=== PATIENT | male | born 1935 | race Caucasian/White ===

== ENCOUNTER 2017-12-06 10:50 | Emergency (ER) | payer MEDICARE, BC ==
--- NOTE | 2017-12-06 11:03 | EDM.PDOC ---
ED HPI GENERAL MEDICAL PROBLEM - General Chief Complaint: Chest Pain Stated Complaint: HEADACHE/CHEST PAIN Time Seen by Provider: 12/06/17 11:03 Source of Information: Reports: Patient History Limitations: Reports: No Limitations - History of Present Illness INITIAL COMMENTS - FREE TEXT/NARRATIVE: Tacho is a pleasant 82yo male presents ambulatory to ED accompanied by his son for sensation of left sided chest pain starting a few hours ago and intermittent dizziness, off and on this past week. He was seen at [facility] early in the week for dizziness and was told he has an irregular heart rhythm and to f/up with PCP. He then followed up with PCP, Dr. San. Dizziness has persisted, is very intermittent, not associated with activity. He does walk 2 miles every morning for years. He walked this morning with very minimal left sided chest pain, no worsening of dizziness. He reports pain has been persistent since sometime this morning. He is not nauseous, no heartburn pain, no diaphoresis, neck, arm or back pain, no headache or vision change. Pain is not positional, not affected by eating or activity. He has hx of hyperlipidemia for which he takes statin medication daily for 20+ years. Otherwise he takes baby ASA daily, no other medications. He has not had chest pain before, again dizziness has been present for around a week. No abd pain, swelling in the abdomen or lower extremities, no leg pain with walking/activity. Onset: Today Duration: Hour(s): Location: Reports: Chest Quality: Reports: Ache Improves with: Reports: None Worsens with: Reports: None Associated Symptoms: Reports: Chest Pain. 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 Denies: Shortness of Breath, Wheezing, Pleuritic Chest Pain, Cough Cardiovascular: Reports: Chest Pain, Lightheadedness (intermittent and accompanied with dizziness x 5-7 days). Denies: Blood Pressure Problem, Claudication, Dyspnea on Exertion, Edema, Orthopnea, Palpitations, PND, Syncope Endocrine: Reports: No Symptoms GI/Abdominal: Reports: No Symptoms : Reports: No Symptoms Musculoskeletal: Reports: No Symptoms Skin: Reports: No Symptoms Neurological: Reports: Dizziness. Denies: Confusion, Headache, Numbness, Paresthesia, Tingling, Tremors, Trouble Speaking, Difficulty Walking, Weakness, Change in Speech, Gait Disturbance Psychiatric: Reports: No Symptoms, Other (reports that he may be feeling a little anxious since being told he has an abnormal heart rhythm) Hematologic/Lymphatic: Reports: No Symptoms ED EXAM, GENERAL - Physical Exam Exam: See Below Exam Limited By: No Limitations General Appearance: Alert, WD/WN, No Apparent Distress Eye Exam: Bilateral Eye: EOMI, PERRL Ears: Normal External Exam, Hearing Grossly Normal Nose: Normal Inspection Throat/Mouth: Normal Inspection, Normal Lips, Normal Voice, No Airway Compromise Head: Atraumatic, Normocephalic Neck: Normal Inspection, Supple, Full Range of Motion Respiratory/Chest: No Respiratory Distress, Lungs Clear, Normal Breath Sounds Cardiovascular: Normal Peripheral Pulses, No Edema, Irregularly Irregular Peripheral Pulses: 2+: Radial (L), Radial (R), Dorsalis Pedis (L), Dorsalis Pedis (R) GI/Abdominal: Normal Bowel Sounds, Soft, Non-Tender (Male) Exam: Deferred Rectal (Males) Exam: Deferred Extremities: Normal Inspection, No Pedal Edema, Normal Capillary Refill Neurological: Alert, Oriented, CN II-XII Intact, Normal Cognition, Normal Gait, No Motor/Sensory Deficits Psychiatric: Normal Affect, Normal Mood Skin Exam: Warm, Dry, Intact, Normal Color. No: Cool, Diaphoretic EKG INTERPRETATION EKG Date: 12/06/17 Rhythm: Other (sinus rhythm with supraventricular bigeminy, EKG reads rate of 83bpm but feel only half of this is getting perfused. Reviewed EKG with Dr. Arredondo.) Comparison: NA - No Prior EKG Course - Vital Signs Last Recorded V/S: Last Vital Signs Temp 98.6 F 12/06/17 11:00 Pulse 73 12/06/17 11:00 Resp 16 12/06/17 11:00 BP 113/65 12/06/17 11:00 Pulse Ox 97 12/06/17 11:00 - Orders/Labs/Meds Orders: Active Orders 24 hr Category Date Time Status EKG 12 Lead [EKG Documentation Completion] [RC] STAT Care 12/06/17 11:10 Active Holter Monitor 24 Hours [RC] .PRN Care 12/06/17 13:32 Active Chest 1V Frontal [CR] Stat Exams 12/06/17 11:28 Taken Labs: Laboratory Tests 12/06/17 12/06/17 12/06/17 Range/Units 11:10 11:10 11:10 WBC 6.39 (4.23-9.07) K/mm3 RBC 5.27 (4.63-6.08) M/mm3 Hgb 15.7 (13.7-17.5) gm/L Hct 45.7 (40.1-51.0) % MCV 86.7 (79.0-92.2) fl MCH 29.8 (25.7-32.2) pg MCHC 34.4 (32.2-35.5) g/dl RDW Std Deviation 44.4 H (35.1-43.9) fL Plt Count 135 L (163-337) K/mm3 MPV 10.5 (9.4-12.3) fl Neut % (Auto) 64.2 (34.0-67.9) % Lymph % (Auto) 25.0 (21.8-53.1) % Henry % (Auto) 9.2 (5.3-12.2) % Eos % (Auto) 1.1 (0.8-7.0) Baso % (Auto) 0.2 (0.1-1.2) % Neut # (Auto) 4.10 (1.78-5.38) K/mm3 Lymph # (Auto) 1.60 (1.32-3.57) K/mm3 Henry # (Auto) 0.59 (0.30-0.82) K/mm3 Eos # (Auto) 0.07 (0.04-0.54) K/mm3 Baso # (Auto) 0.01 (0.01-0.08) K/mm3 Sodium 141 (136-145) mEq/L Potassium 4.1 (3.5-5.1) mEq/L Chloride 107 (98-107) mEq/L Carbon Dioxide 26 (21-32) mEq/L Anion Gap 12.1 (5-15) BUN 16 (7-18) mg/dL Creatinine 1.1 (0.7-1.3) mg/dL Est Cr Clr Drug Dosing 51.82 mL/min Estimated GFR (MDRD) > 60 (>60) mL/min BUN/Creatinine Ratio 14.5 (14-18) Glucose 115 (83-115) mg/dL Calcium 8.7 (8.5-10.1) mg/dL Magnesium (1.8-2.4) mg/dl Total Bilirubin 2.3 H (0.2-1.0) mg/dL AST 21 (15-37) U/L ALT 27 (16-63) U/L Alkaline Phosphatase 64 (46-116) U/L CK-MB (CK-2) 1.4 (0-3.6) ng/ml Troponin I < 0.017 (0.00-0.056) ng/mL NT-Pro-B Natriuret Pep 82 (0-450) pg/mL Total Protein 6.7 (6.4-8.2) g/dl Albumin 3.6 (3.4-5.0) g/dl Globulin 3.1 gm/dL Albumin/Globulin Ratio 1.2 (1-2) //18 Range/Units 11:10 WBC (4.23-9.07) K/mm3 RBC (4.63-6.08) M/mm3 Hgb (13.7-17.5) gm/L Hct (40.1-51.0) % MCV (79.0-92.2) fl MCH (25.7-32.2) pg MCHC (32.2-35.5) g/dl RDW Std Deviation (35.1-43.9) fL Plt Count (163-337) K/mm3 MPV (9.4-12.3) fl Neut % (Auto) (34.0-67.9) % Lymph % (Auto) (21.8-53.1) % Henry % (Auto) (5.3-12.2) % Eos % (Auto) (0.8-7.0) Baso % (Auto) (0.1-1.2) % Neut # (Auto) (1.78-5.38) K/mm3 Lymph # (Auto) (1.32-3.57) K/mm3 Henry # (Auto) (0.30-0.82) K/mm3 Eos # (Auto) (0.04-0.54) K/mm3 Baso # (Auto) (0.01-0.08) K/mm3 Sodium (136-145) mEq/L Potassium (3.5-5.1) mEq/L Chloride (98-107) mEq/L Carbon Dioxide (21-32) mEq/L Anion Gap (5-15) BUN (7-18) mg/dL Creatinine (0.7-1.3) mg/dL Est Cr Clr Drug Dosing mL/min Estimated GFR (MDRD) (>60) mL/min BUN/Creatinine Ratio (14-18) Glucose (83-115) mg/dL Calcium (8.5-10.1) mg/dL Magnesium 1.8 (1.8-2.4) mg/dl Total Bilirubin (0.2-1.0) mg/dL AST (15-37) U/L ALT (16-63) U/L Alkaline Phosphatase (46-116) U/L CK-MB (CK-2) (0-3.6) ng/ml Troponin I (0.00-0.056) ng/mL NT-Pro-B Natriuret Pep (0-450) pg/mL Total Protein (6.4-8.2) g/dl Albumin (3.4-5.0) g/dl Globulin gm/dL Albumin/Globulin Ratio (1-2) Meds: Medications Discontinued Medications Generic Name Dose Route Start Last Admin Trade Name Freq PRN Reason Stop Dose Admin Sodium Chloride 1,000 mls @ 250 mls/hr 12/06/17 12:43 12/06/17 13:00 Normal Saline IV 12/06/17 16:42 250 mls/hr ONETIME ONE Administration - Re-Assessments/Exams Free Text/Narrative Re-Assessment/Exam: 12/06/17 13:53 Patient states he feels "a lot better", hydrated with 1L/NS. Reviewed normal labs, negative troponin, normal CXR and BNP. HR's on tele with intermittent bigeminy otherwise rates in the mid 40's, I feel he is not perfusing the bigeminal beats. Reviewed this with him. Will obtain 24 hour holter monitor with results to PCP, Dr. San. I am recommending consult with Cardiology for possible pacemaker insertion. At this time I feel comfortable as does patient with discharge home as he is tolerating bradycardia. He can continue usual activities other than driving long distances. He is to carry his cell phone with him at all times, if he is on his usual 2 mile walk daily and gets dizzy or near-syncopal he is to call 911 and come to the hospital. If he is at home and this occurrs he knows to call for help. I request he have follow up with Dr. Jaswinder lopes and cardiology consult. He states he is willing to go to [facility] for this if needed and his son can drive him. He knows plan if symptoms worsen to return to ED. Departure - Departure Time of Disposition: 13:58 Disposition: Home, Self-Care 01 Condition: Good Clinical Impression: Bradycardia, Dizzinesses Arrhythmia Qualifiers: Arrhythmia type: unspecified cardiac arrhythmia Qualified Code(s): I49.9 - Cardiac arrhythmia, unspecified Instructions: Holter Monitoring, Bradycardia, Adult, Dizziness, [id number] Referrals: Roly San Jr, MD [Primary Care Provider] - Forms: ED Department Discharge Additional Instructions: Push fluids Continue usual activity, including waking. Avoid driving long distances or out of town. Carry your cell phone with you at all times, phone for help/911 if worsening dizziness, sensation that you may pass out, chest pain. Follow up with Dr. San, Primary Care Provider as soon as possible this next week. I recommend a Cardiology consult for abnormal hear rhythm/arrhythmia/ bradycardia. 24 hour Holter Monitor results/report will be sent to Dr. San. Return to ER if worsening dizziness, chest pain, sensation that you may pass out , any other concerns. - My Orders Last 24 Hours: My Active Orders 12/06/17 11:10 EKG 12 Lead [EKG Documentation Completion] [RC] STAT 12/06/17 11:28 Chest 1V Frontal [CR] Stat 12/06/17 13:32 Holter Monitor 24 Hours [RC] .PRN - Assessment/Plan Last 24 Hours: My Active Orders 12/06/17 11:10 EKG 12 Lead [EKG Documentation Completion] [RC] STAT 12/06/17 11:28 Chest 1V Frontal [CR] Stat 12/06/17 13:32 Holter Monitor 24 Hours [RC] .PRN
[2017-12-06] MEDS ORDERED: Sodium Chloride 0.9% 1,000 ML IV ONE (12:43)
--- NOTE | 2017-12-07 07:07 | CR ---
Chest: Portable view of the chest was obtained. Comparison: No prior chest x-ray. Heart is mildly enlarged. Tortuous thoracic aorta is seen. Lungs are clear with no acute parenchymal densities. Scattered degenerative change and minimal scoliosis is present within the spine. Impression: 1. Findings as noted above. Nothing acute is seen. Diagnostic code #2
== END 2017-12-06 14:13 | disposition home or self-care (01) ==
LOC: JD.ED 10:50
DX: I49.9 Cardiac arrhythmia, unspecified (principal)
CPT/HCPCS: 36415; 71045; 80053; 82553; 83735; 83880; 84484; 85025; 93005; 93225; 93226; 96360; 99285; J7040; 93010; 99284